=== PATIENT | male | born 1935 | race Hispanic/Latino ===

== ENCOUNTER 2021-08-18 05:57 | Day surgery (SDC) | payer MEDICARE ==
[2021-08-16 09:06] LABS: BASOPHILS % (AUTO) 0.9 % (0.0-5.0); EOSINOPHILS % (AUTO) 1.3 % (0.0-8.0); HEMATOCRIT 33.9 % (42-54); MEAN CORPUSCULAR HEMOGLOBIN 29.6 pg (27.0-33.0); MEAN CORPUSCULAR HGB CONC 32.2 g/dL (32.0-36.0); MEAN CORPUSCULAR VOLUME 92.1 fL (79-99); MONOCYTES % (AUTO) 9.2 % (3.0-13.0); PLATELET COUNT (AUTO) 312 K/uL (130-400); RED BLOOD CELL COUNT(AUTO) 3.68 MIL/uL (4.50-6.20); RED CELL DISTRIBUTION WIDTH 13.2 % (11.0-15.5); WHITE BLOOD COUNT (AUTO) 6.9 K/uL (4.8-10.8)
[2021-08-16 09:26] LABS: CREATININE 1.4 mg/dL (0.5-1.5); POTASSIUM 4.8 mmol/L (3.5-5.1)
[2021-08-16 10:00] LABS: INR 1.05 (0.85-1.15); PROTHROMBIN TIME 11.4 SEC (9.6-11.6)
[2021-08-16 10:01] LABS: PARTIAL THROMBOPLASTIN TIME 26.2 SEC (26.3-35.5)
[2021-08-17 15:27] VITALS: BP 100/49
[~2021-08-18] VITALS: Ht 175.3 cm; Wt 78.7 kg
[2021-08-18] VITALS (13 sets, daily range): BP systolic 106–143; BP diastolic 47–85
[~2021-08-18 05:57] MED LIST: ACAR100T2 PO; AMLO-258 PO; ASPI-1005 PO; ATOR-2 PO; EZET10TA48 PO; FENO145T26 PO; FINA5TAB41 PO; HYDR25TA PO; INSU100I21 SQ; INSU100V12 SQ; MEMA5TAB42 PO; METF-446 PO; METO-408 PO; MIRA50TA PO; PANT40TA54 PO; RAMI10CA69 PO; SENN-107 PO; TAMS0.4C32 PO; vitamin d PO
[2021-08-18] MEDS ORDERED: AMLODIPINE 5 MG TAB PO SCH (06:00)
[2021-08-18] MEDS ORDERED: METOPROLOL TARTRATE 25 MG TAB PO SCH (06:00)
[2021-08-18] MEDS ORDERED: ASPIRIN 81 MG EC TAB PO SCH (06:00)
[2021-08-18] MEDS ORDERED: 0.9% NACL 500ML IV.SOLN 500 ML IV SCH (06:00)
[2021-08-18] MEDS ORDERED: LISINOPRIL 40 MG TABLET PO SCH (06:00)
[2021-08-18] MEDS ORDERED: HYDROCHLOROTHIAZIDE 25 MG TABLET PO SCH (06:00)
[2021-08-18] MEDS ORDERED: 0.9%NACL 1000ML 1,000 ML IV ONE (07:23)
[2021-08-18] MEDS ORDERED: MIDAZOLAM HCL 1 MG/ML 2ML VIAL ONE ×2 (07:34→08:05)
[2021-08-18] MEDS ORDERED: BUPIVACAINE/PF 0.25% 30ML VIAL IJ ONE (07:34)
[2021-08-18] MEDS ORDERED: IODIXANOL 320 MG/ML 100 ML VIAL ONE (07:34)
[2021-08-18] MEDS ORDERED: MEPERIDINE-PF 25 MG/ML SYG ONE ×2 (07:34→08:05)
[2021-08-18] MEDS ORDERED: VANCOMYCIN 1G/250ML KIT 500 ML IV ONE (07:35)
[2021-08-18] MEDS ORDERED: LIDOCAINE HCL 1% MDV 50ML VIAL ONE (07:35)
[2021-08-18] MEDS ORDERED: DEXTROSE 50%-WATER 50 ML DISP.SYRIN IV PRN (10:30)
[2021-08-18] MEDS ORDERED: ACETAMINOPHEN 325 MG TAB PO PRN ×2 (10:30)
[2021-08-18] MEDS ORDERED: GLUCAGON 1MG KIT 1 MG ML IM PRN (10:30)
[2021-08-18] MEDS: INSULIN HUMULIN R 100 UNIT/ML 3ML SQ SCH ×2 (11:30→13:30)
== END 2021-08-18 18:30 | disposition home or self-care (01) ==
LOC: DAH 05:57
PROVIDERS: ATTEND Internal Medicine Cardiovascular Disease
DX: I25.5 Ischemic cardiomyopathy (principal); I45.2 Bifascicular block; E11.22 Type 2 diabetes mellitus with diabetic chronic kidney disease; I13.0 Hypertensive heart and chronic kidney disease with heart failure and stage 1 through stage 4 chronic kidney disease, or unspecified chronic kidney disease; N18.30 Chronic kidney disease, stage 3 unspecified; I25.10 Atherosclerotic heart disease of native coronary artery without angina pectoris; I50.42 Chronic combined systolic (congestive) and diastolic (congestive) heart failure; D64.9 Anemia, unspecified; F03.90 Unspecified dementia, unspecified severity, without behavioral disturbance, psychotic disturbance, mood disturbance, and anxiety; Z95.1 Presence of aortocoronary bypass graft; Z98.890 Other specified postprocedural states; Z85.46 Personal history of malignant neoplasm of prostate; Z79.01 Long term (current) use of anticoagulants
CPT/HCPCS: 33225; 33249; 36415; 71046; 80048; 82948 ×2; 85025; 85610; 85730; 93005; A4215; A4216; A4221; A4222; A4223 ×3; A4606; A4663; C1769 ×6; C1882; C1894; C1895; C1896; C1900; J1815; J2175 ×2; J2250 ×2; J3370; J3490 ×2; J7030; Q9967; 99156; 99157

== ENCOUNTER 2021-12-05 11:49 | Emergency (ER) | payer MEDICARE, OTHER ==
[~2021-12-05] VITALS: Ht 175.3 cm; Wt 78.9 kg
[~2021-12-05 11:49] MED LIST changes: -AMLO-258 PO; -METO-408 PO
[2021-12-05] MEDS ORDERED: NITROGLYCERIN 0.4 MG SL TAB SL PRN (12:00)
[2021-12-05] MEDS ORDERED: ASPIRIN 325MG TAB PO ONE (12:00)
[2021-12-05 12:15] LABS: BASOPHILS % (AUTO) 0.7 % (0.0-5.0); EOSINOPHILS % (AUTO) 0.7 % (0.0-8.0); LYMPHOCYTES % (AUTO) 18.1 % (21.0-51.0); MEAN CORPUSCULAR HEMOGLOBIN 28.8 pg (27.0-33.0); MEAN CORPUSCULAR HGB CONC 31.3 g/dL (32.0-36.0); MEAN CORPUSCULAR VOLUME 92.2 fL (79-99); MONOCYTES % (AUTO) 7.1 % (3.0-13.0); NEUTROPHILS % (AUTO) 73.1 % (40.0-77.0); PLATELET COUNT (AUTO) 262 K/uL (130-400); RED BLOOD CELL COUNT(AUTO) 3.47 MIL/uL (4.50-6.20); RED CELL DISTRIBUTION WIDTH 13.2 % (11.0-15.5); WHITE BLOOD COUNT (AUTO) 6.9 K/uL (4.8-10.8)
[2021-12-05 12:29] LABS: ALBUMIN 3.4 g/dL (3.5-5.0); BILIRUBIN,TOTAL 0.2 mg/dL (0.2-1.0); CREATININE 1.7 mg/dL (0.5-1.5); POTASSIUM 4.8 mmol/L (3.5-5.1); TOTAL PROTEIN, SERUM 6.1 g/dL (6.0-8.3)
[2021-12-05 15:10] VITALS: BP 133/56
== END 2021-12-05 15:14 | disposition home or self-care (01) ==
LOC: EDH 11:49
DX: R07.89 Other chest pain (principal); I11.0 Hypertensive heart disease with heart failure; I50.9 Heart failure, unspecified; J44.9 Chronic obstructive pulmonary disease, unspecified; E11.9 Type 2 diabetes mellitus without complications; Z88.0 Allergy status to penicillin; Z79.4 Long term (current) use of insulin; Z79.82 Long term (current) use of aspirin; Z79.899 Other long term (current) drug therapy; Z95.0 Presence of cardiac pacemaker; Z95.1 Presence of aortocoronary bypass graft; Z95.810 Presence of automatic (implantable) cardiac defibrillator
CPT/HCPCS: 36415; 71045; 80053; 83880; 84484; 85025; 93005